=== PATIENT | male | born 1995 ===

== ENCOUNTER 2017-01-08 16:17 | Emergency (ER) | payer MEDICAID, OTHER ==
[2017-01-08 16:27] VITALS: BMI 31.0
[2017-01-08 16:30] VITALS: BP 121/82; PULSE 98; TEMP 99.4
--- NOTE | 2017-01-08 16:45 | ED PDOC ---
Arrival/HPI - General Chief Complaint: ENT Problem Time Seen by Provider: 01/08/17 16:36 - History of Present Illness Narrative History of Present Illness (Text): 01/08/17 16:41 21 yo male, no prior hx, presents with left ear pain. as per pt, woke up with symptoms today. as per pt, "getting over flu". denies sore throat, cough, n/v/d , abd pain, urinary changes, swimming Past Medical History - Provider Review Nursing Documentation Reviewed: Yes - Infectious Disease Hx of Infectious Diseases: None - Tetanus Immunization Tetanus Immunization: Unknown - Reproductive Currently : No - Cardiac Hx Cardiac Disorders: No - Pulmonary Hx Respiratory Disorders: No - Neurological Hx Neurological Disorder: No - HEENT Hx HEENT Disorder: No - Renal Hx Renal Disorder: No - Endocrine/Metabolic Hx Endocrine Disorders: No - Hematological/Oncological Hx Blood Disorders: No - Integumentary Hx Dermatological Disorder: No - Musculoskeletal/Rheumatological Hx Musculoskeletal Disorders: No - Gastrointestinal Hx Gastrointestinal Disorders: No - Genitourinary/Gynecological Other/Comment: 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 - Psychiatric Hx Psychophysiologic Disorder: No Hx Substance Use: No - Surgical History Other/Comment: left testical removed - Anesthesia Hx Anesthesia: Yes Hx Anesthesia Reactions: No Hx Malignant Hyperthermia: No Family/Social History Family/Social History: Unknown Family HX Smoking Status: Never Smoked Hx Alcohol Use: Yes Hx Substance Use: No Substance used: marajuana Allergies/Home Meds Allergies/Adverse Reactions: Allergies No Known Allergies Allergy (Verified 10/07/16 00:20) Review of Systems - Review of Systems Constitutional: Normal Eyes: Normal ENT: Other (ear pain) Respiratory: Normal Cardiovascular: Normal Gastrointestinal: Normal Genitourinary Male: Normal Musculoskeletal: Normal Skin: Normal Neurological: Normal Endocrine: Normal Hemo/Lymphatic: Normal Psychiatric: Normal Physical Exam Vital Signs Temp Pulse Resp BP Pulse Ox 01/08/17 16:18 99.4 F 98 H 16 121/82 96 Temperature: Afebrile Blood Pressure: Normal Pulse: Regular Respiratory Rate: Normal Appearance: Positive for: Well-Appearing, Non-Toxic, Comfortable Pain Distress: None Mental Status: Positive for: Alert and Oriented X 3 - Systems Exam Head: Present: Atraumatic, Normocephalic Pupils: Present: PERRL Extroacular Muscles: Present: EOMI Conjunctiva: Present: Normal Ears: Present: Erythema (left ear) Mouth: Present: Moist Mucous Membranes Pharnyx: No: ERYTHEMA, EXUDATE Neck: Present: Normal Range of Motion Respiratory/Chest: Present: Clear to Auscultation, Good Air Exchange. No: Respiratory Distress, Accessory Muscle Use Cardiovascular: Present: Regular Rate and Rhythm, Normal S1, S2. No: Murmurs Abdomen: Present: Normal Bowel Sounds. No: Tenderness, Distention, Peritoneal Signs Back: Present: Normal Inspection Upper Extremity: Present: Normal Inspection. No: Cyanosis, Edema Lower Extremity: Present: Normal Inspection. No: Edema Neurological: Present: GCS=15, CN II-XII Intact, Speech Normal Skin: Present: Warm, Dry, Normal Color. No: Rashes Psychiatric: Present: Alert, Oriented x 3, Normal Insight, Normal Concentration Medical Decision Making ED Course and Treatment: 01/08/17 16:43 om - antibiotics outpt f/u 01/08/17 16:49 no mastoid ttp - Medication Orders Current Medication Orders: Discontinued Medications Amoxicillin (Amoxil 500 Mg Cap) 500 mg PO STAT STA PRN Reason: Protocol Stop: 01/08/17 16:42 Disposition/Present on Arrival - Present on Arrival Any Indicators Present on Arrival: No History of DVT/PE: No History of Uncontrolled Diabetes: No Urinary Catheter: No History of Decub. Ulcer: No History Surgical Site Infection Following: None - Disposition Have Diagnosis and Disposition been Completed?: Yes Diagnosis: Otitis media Disposition: HOME/ ROUTINE Disposition Time: 16:44 Patient Problems: Current Active Problems Problem Status Diagnosed Otitis media Acute Condition: STABLE Discharge Instructions (ExitCare): Otitis Media (ED) Additional Instructions: please see clinic. return to er with worsening symptoms or concerns. Prescriptions: Amoxicillin 500 mg PO TID #21 tablet Referrals: [facility] [place] - Follow up with primary [facility] [Outside] - Follow up with primary
[2017-01-08 17:04] VITALS: RESP 18; O2SAT 98
== END 2017-01-08 17:03 | disposition home or self-care (01) ==
LOC: ED 16:17
DX: H66.92 Otitis media, unspecified, left ear (principal)

== ENCOUNTER 2017-02-04 18:39 | Emergency (ER) | payer OTHER ==
[2017-02-04 18:39] VITALS: BMI 31.0
[2017-02-04 18:48] VITALS: BP 133/77; PULSE 108; RESP 20; TEMP 99.5; O2SAT 97
--- NOTE | 2017-02-04 20:16 | ED PDOC ---
Arrival/HPI - General Chief Complaint: Male Genitourinary Time Seen by Provider: 02/04/17 19:44 Historian: Patient - History of Present Illness Narrative History of Present Illness (Text): 02/04/17 20:13 21yo male present with complaint of right sided testicular pain x 3months. Started having suprapubic abdominal pain 2weeks ago. +Urinary frequency. Denies penile discharge, dysuria, fever, chills, nausea, vomiting, diarrhea, heamturia. States he is sexually active. Past Medical History - Provider Review Nursing Documentation Reviewed: Yes - Infectious Disease Hx of Infectious Diseases: None - Tetanus Immunization Tetanus Immunization: Unknown - Reproductive Currently : No - Cardiac Hx Cardiac Disorders: No - Pulmonary Hx Respiratory Disorders: No - Neurological Hx Neurological Disorder: No - HEENT Hx HEENT Disorder: No - Renal Hx Renal Disorder: No - Endocrine/Metabolic Hx Endocrine Disorders: No - Hematological/Oncological Hx Blood Disorders: No - Integumentary Hx Dermatological Disorder: No - Musculoskeletal/Rheumatological Hx Musculoskeletal Disorders: No - Gastrointestinal Hx Gastrointestinal Disorders: No - Genitourinary/Gynecological Other/Comment: 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 - Psychiatric Hx Psychophysiologic Disorder: No Hx Substance Use: Yes - Surgical History Other/Comment: left testical removed - Anesthesia Hx Anesthesia: Yes Hx Anesthesia Reactions: No Hx Malignant Hyperthermia: No Family/Social History - Physician Review Nursing Documentation Reviewed: Yes Family/Social History: Unknown Family HX Smoking Status: Never Smoked Hx Alcohol Use: Yes Hx Substance Use: Yes Substance used: marajuana Allergies/Home Meds Allergies/Adverse Reactions: Allergies seafood Allergy (Uncoded 02/04/17 18:48) RASH Review of Systems - Physician Review All systems were reviewed & negative as marked: Yes - Review of Systems Constitutional: Normal Eyes: Normal ENT: Normal Respiratory: Normal Cardiovascular: Normal Gastrointestinal: Abdominal Pain. absent: Constipation, Diarrhea, Nausea, Vomiting, Hematemesis Genitourinary Male: Frequency, Other (Right testicular pain). absent: Dysuria, Hematuria Musculoskeletal: Normal Skin: Normal Neurological: Normal Endocrine: Normal Hemo/Lymphatic: Normal Psychiatric: Normal Physical Exam Vital Signs Reviewed: Yes Vital Signs Temp Pulse Resp BP Pulse Ox 02/04/17 18:45 99.5 F 108 H 20 133/77 97 Temperature: Afebrile Blood Pressure: Normal Pulse: Regular Respiratory Rate: Normal Appearance: Positive for: Well-Appearing, Non-Toxic, Comfortable Pain Distress: None Mental Status: Positive for: Alert and Oriented X 3 - Systems Exam Head: Present: Atraumatic, Normocephalic Pupils: Present: PERRL Extroacular Muscles: Present: EOMI Conjunctiva: Present: Normal Mouth: Present: Moist Mucous Membranes Neck: Present: Normal Range of Motion Respiratory/Chest: Present: Clear to Auscultation, Good Air Exchange. No: Respiratory Distress, Accessory Muscle Use Cardiovascular: Present: Regular Rate and Rhythm, Normal S1, S2. No: Murmurs Abdomen: Present: Tenderness (Suprapubic tenderness), Normal Bowel Sounds, Other (soft). No: Distention, Peritoneal Signs, Rebound, Guarding, McBurney's Point Tender, Rovsing's Sign Present Genitourinary Male: Present: Testicle Tenderness (right testicule). No: Penile Swelling, Testicle Swelling Back: Present: Normal Inspection Upper Extremity: Present: Normal Inspection. No: Cyanosis, Edema Lower Extremity: Present: Normal Inspection. No: Edema Neurological: Present: GCS=15, CN II-XII Intact, Speech Normal Skin: Present: Warm, Dry, Normal Color. No: Rashes Psychiatric: Present: Alert, Oriented x 3, Normal Insight, Normal Concentration Medical Decision Making ED Course and Treatment: 02/04/17 21:25 Pt in ED for stated history. He was comfortable in ED. His pain improved in ED with medication. UA was negative. chlamydia/gono culture pending. Pt states he is sexually active. He will be treated prophylactically for STD. Advised to abstain from sex until he gets his result in 2business days. If positive he was advised t have the sexual partner treated. Testicular US FINDINGS: Right testicle: No mass. No torsion. Left testicle: Surgically absent. Epididymides: Small RIGHT epididymal cyst. Scrotum: Unremarkable Result was DW the pt. He was referred to a Urologist. TRT ED for any new or worsening symptoms. - Lab Interpretations Lab Results: Lab Results 02/04/17 20:16: Urine Color Yellow, Urine Appearance Sl cloudy, Urine pH 8.0, Ur Specific [place] 1.015, Urine Protein 30 H, Urine Glucose (UA) Negative, Urine Ketones Negative, Urine Blood Negative, Urine Nitrate Negative, Urine Bilirubin Negative, Urine Urobilinogen 1.0 H, Ur Leukocyte Esterase Negative, Urine RBC 0 - 2, Urine WBC Negative, Urine Other Mucus - RAD Interpretation Radiology Orders: 02/04/17 20:00 TESTES DUPLEX COMPLETE [US] Stat - Medication Orders Current Medication Orders: Discontinued Medications Ketorolac Tromethamine (Toradol) 60 mg IM STAT STA Stop: 02/04/17 20:03 Last Admin: 02/04/17 20:59 Dose: 60 mg Disposition/Present on Arrival - Present on Arrival Any Indicators Present on Arrival: No History of DVT/PE: No History of Uncontrolled Diabetes: No Urinary Catheter: No History of Decub. Ulcer: No History Surgical Site Infection Following: None - Disposition Have Diagnosis and Disposition been Completed?: Yes Diagnosis: Testicle pain, Abdominal pain Disposition: HOME/ ROUTINE Disposition Time: 21:30 Patient Plan: Discharge Condition: STABLE Discharge Instructions (ExitCare): Testicle Pain (ED), Abdominal Pain (ED) Additional Instructions: Follow up with a Urologist Return to ED for any new or worsening symptoms Prescriptions: Ibuprofen [Motrin Tab] 600 mg PO Q6 #20 tab Referrals: Obdulio White MD [Staff Provider] - Follow up with primary
[2017-02-04 20:32] LABS: URINE BILIRUBIN NEGATIVE (NEGATIVE); URINE BLOOD NEGATIVE (NEGATIVE); URINE GLUCOSE (UA) NEGATIVE (NEGATIVE); URINE KETONE NEGATIVE (NEGATIVE); URINE LEUKOCYTE ESTERASE NEGATIVE Leu/uL (NEGATIVE); URINE PROTEIN 30 mg/dL (<30 mg/dL)
[2017-02-04 20:41] LABS: URINE APPEARANCE SL CLOUDY (CLEAR); URINE COLOR YELLOW (YELLOW)
[2017-02-04 20:42] LABS: URINE RBC 0 - 2 /hpf (0-2)
[2017-02-04 20:43] LABS: URINE WBC NEGATIVE /hpf (0-6)
--- NOTE | 2017-02-04 21:22 | US ---
EXAM: US Scrotum CLINICAL HISTORY: 21 years old, male; Pain; Scrotum pain; Prior surgery; Surgery date: 6+ months; Surgery type: Lt testicle removed 2007; Additional info: Right testicle pain TECHNIQUE: Real-time ultrasound of the scrotum with color Doppler and image documentation. COMPARISON: No relevant prior studies available. FINDINGS: Right testicle: No mass. No torsion. Left testicle: Surgically absent. Epididymides: Small RIGHT epididymal cyst. Scrotum: Unremarkable. IMPRESSION: 1. No sonographic evidence of testicular torsion. 2. Incidental/non-acute findings are described above.
[2017-02-04] MEDS ORDERED: cefTRIAXone (Rocephin) 250 mg Inj IM STA (21:27)
== END 2017-02-04 21:59 | disposition home or self-care (01) ==
LOC: ED 18:39
DX: N50.811 Right testicular pain (principal); R10.9 Unspecified abdominal pain
CPT/HCPCS: 81001; 87491; 87591; 93975; 96372; 99283; J1885